=== PATIENT | male | born 1930 | race Caucasian/White ===

== ENCOUNTER 2017-06-02 11:07 | Observation (INO) | payer MEDICARE, BC ==
[2017-06-02] MEDS ORDERED: Pneumococcal Polyvalent-23 Vaccine 0.5 ML SDV IM ONE (11:39)
[2017-06-02] MEDS ORDERED: Sodium Chloride 0.9% 2.5 ML Syringe FLUSH PRN (12:08)
[2017-06-02] MEDS ORDERED: Acetaminophen 325 MG Tab PO PRN ×2 (12:08→13:29)
[2017-06-02] MEDS: Levofloxacin/Dextrose 5%-Water 750 MG in Premix Bag 1 BAG IV SCH (12:12)
--- NOTE | 2017-06-02 12:49 | PCM.HP ---
H&P History of Present Illness - General Date of Service: 06/02/17 Admit Problem/Dx: Admission Diagnosis/Problem Admission Diagnosis/Problem Hypoxia Source of Information: Patient History Limitations: Reports: No Limitations - History of Present Illness Initial Comments - Free Text/Narative: This 87 year old male with pmh of diastolic dysfunction, pulmonary fibrosis, macular degeneration and HTN presented to [place] outpatient clinic at request of [facility] nurses due to hypoxia and SOB with low grade temp this morning. He was seen by Leila Randolph NP, who noted the hypoxia with normal white count. She called for direct admit for suspected pneumonia. He was brought to hospital directly and admited observation for suspected pneumonia. He was placed on 2 L oxygen, with sats mid 90s. He reports feeling general malaise, a productive cough, with yellow to green phlegm. He denies fevers or chills. Eating and drinking ok at [facility]. No troubles with abdominal pain or nausea. No urinary concerns. Patient not the greatest historian when it comes to [facility], obtained for [facility] documents and previous clinic notes from Dr. Lucas. No leukocytosis noted, influenza swab obtained along with CXR. CXR revealed diffuse reticulonodular pattern, greater in lung bases, no dense consolidation, pleural effusion or pneumothorax, mildly prominent upper lobe vascularity. He will remain observation for pneumonia and hypoxia. - Related Data Allergies/Adverse Reactions: Allergies Allergy/AdvReac Type Severity Reaction Status Date / Time No Known Allergies Allergy Verified 06/02/17 11:30 Home Medications: Home Meds Acetaminophen [Tylenol Extra Strength] 1,000 mg PO BEDTIME PRN 06/02/17 [History ] Acetaminophen [Tylenol Extra Strength] 1,000 mg PO TID PRN 06/02/17 [History] Albuterol Sulfate [Proair Respiclick] 2 puff INH Q4H PRN 06/02/17 [History] Atenolol 50 mg PO DAILY 06/02/17 [History] Bisacodyl [Dulcolax] 10 mg RECTAL DAILY PRN 06/02/17 [History] Docusate Sodium [Colace] 100 mg PO BID 06/02/17 [History] Ferrous Sulfate 325 mg PO DAILY 06/02/17 [History] Fluticasone/Salmeterol [Advair 250-50 Diskus] 50 - 500 inh IH BID 06/02/17 [ History] Loperamide [Imodium] 2 mg PO QID PRN 06/02/17 [History] Loperamide [Imodium] 4 mg PO ONETIME PRN 06/02/17 [History] Mag Hydrox/Al Hydrox/Simeth [Maalox Maximum Strength Susp] 30 ml PO QID PRN [History] Magnesium Hydroxide [Milk of Magnesia] 30 ml PO DAILY PRN 06/02/17 [History] Olmesartan/Hydrochlorothiazide [Benicar HCT 20-12.5 MG] 1 tab PO DAILY 06/02/17 [History] Omeprazole Magnesium [Prilosec Otc] 20 mg PO ACBREAKFAST 06/02/17 [History] guaiFENesin [Robitussin] 300 mg PO Q4H PRN 06/02/17 [History] traMADol [Ultram] 50 mg PO Q6H PRN 06/02/17 [History] traZODone 50 mg PO BEDTIME 06/02/17 [History] Past Medical History HEENT History: Reports: Macular Degeneration Cardiovascular History: Reports: CAD, Heart Failure (diastolic dysfunction), Hypertension. Denies: Afib Respiratory History: Reports: Pneumonia, Recurrent, Pulmonary Fibrosis, SOB Gastrointestinal History: Reports: None. Denies: GERD Genitourinary History: Reports: None. Denies: Chronic Renal Insuffiency Musculoskeletal History: Reports: None Neurological History: Reports: None. Denies: CVA, TIA Endocrine/Metabolic History: Denies: Diabetes, Type II, Hypothyroidism Hematologic History: Reports: None Social & Family History - Alcohol Use Alcohol Use History: No H&P Review of Systems - Review of Systems: Review Of Systems: See Below General: Reports: Malaise, Fatigue. Denies: Fever, Chills HEENT: Reports: No Symptoms. Denies: Headaches, Sinus Congestion, Sore Throat Pulmonary: Reports: Shortness of Breath (with ambulation more than anything), Cough, Sputum (yellow to green). Denies: Wheezing, Pleuritic Chest Pain Cardiovascular: Reports: No Symptoms. Denies: Chest Pain, Palpitations, Edema, Lightheadedness, Syncope Gastrointestinal: Reports: No Symptoms. Denies: Abdominal Pain, Black Stool, Bloody Stool, Decreased Appetite, Nausea, Vomiting Genitourinary: Reports: No Symptoms. Denies: Dysuria, Frequency, Burning, Pain Musculoskeletal: Reports: No Symptoms Skin: Reports: No Symptoms Psychiatric: Reports: No Symptoms Neurological: Reports: No Symptoms Hematologic/Lymphatic: Reports: No Symptoms Exam - Exam Exam: See Below - Vital Signs Vital Signs: Last Vital Signs Temp 96.9 F 06/02/17 11:29 Pulse 63 06/02/17 11:29 Resp 16 06/02/17 11:29 BP 130/51 L 06/02/17 11:29 Pulse Ox 98 06/02/17 11:29 Weight: 93.8 kg - Exam Quality Assessment: Supplemental Oxygen General: Alert, Oriented, Cooperative HEENT: Conjunctiva Clear, Pupils Equal Neck: Supple, Full Range of Motion. No: Lymphadenopathy Lungs: Normal Respiratory Effort, Crackles (L base), Other (congested moist cough noted.). No: Wheezing Cardiovascular: Regular Rate, Regular Rhythm, Normal S1, Normal S2 GI/Abdominal Exam: Normal Bowel Sounds, Soft, Non-Tender, No Organomegaly, No Distention, No Abnormal Bruit, No Mass, Pelvis Stable Extremities: Normal Range of Motion, Non-Tender, Pedal Edema (+1 bilateral pedal edema, non pitting.) Neurological: Cranial Nerves Intact Neuro Extensive - Mental Status: Alert, Oriented x3, Normal Mood/Affect Psychiatric: Alert, Normal Affect, Normal Mood - Patient Data Result Diagrams: 06/02/17 12:11 *Q Meaningful Use (ADM) - VTE *Q VTE Criteria *Q: - Stroke *Q Stroke Criteria *Q: - AMI *Q AMI Criteria *Q: - Problem List (1) Pneumonia SNOMED Code(s): 688106414 ICD Code: J18.9 - PNEUMONIA, UNSPECIFIED ORGANISM Status: Acute Current Visit: Yes Qualifiers: Pneumonia type: due to unspecified organism Laterality: left Lung location: lower lobe of lung Qualified Code(s): J18.1 - Lobar pneumonia, unspecified organism (2) HTN (hypertension) SNOMED Code(s): 29050823 ICD Code: I10 - ESSENTIAL (PRIMARY) HYPERTENSION Status: Chronic Current Visit: Yes Qualifiers: Hypertension type: essential hypertension Qualified Code(s): I10 - Essential (primary) hypertension (3) Pulmonary fibrosis SNOMED Code(s): 33711457 ICD Code: J84.10 - PULMONARY FIBROSIS, UNSPECIFIED Status: Chronic Current Visit: Yes (4) Macular degeneration SNOMED Code(s): 314685693 ICD Code: H35.30 - UNSPECIFIED MACULAR DEGENERATION Status: Chronic Current Visit: Yes (5) Diastolic dysfunction SNOMED Code(s): 0380760 ICD Code: I51.9 - HEART DISEASE, UNSPECIFIED Status: Chronic Current Visit: Yes Problem List Initiated/Reviewed/Updated: Yes Orders Last 24hrs: Active Orders 24 hr Category Date Time Status Patient Status [ADT] Routine ADT 06/02/17 12:08 Active Intake and Output [RC] QSHIFT Care 06/02/17 12:09 Active Oxygen Therapy [RC] PRN Care 06/02/17 12:08 Active Up With Assistance [RC] ASDIRECTED Care 06/02/17 12:08 Active VTE/DVT Education [RC] PER UNIT ROUTINE Care 06/02/17 12:08 Active Vital Signs [RC] Q4H Care 06/02/17 12:08 Active 2 Gram Sodium Diet [DIET] Diet 06/02/17 Lunch Active Chest 2V [CR] Routine Exams 06/02/17 11:54 Taken BASIC METABOLIC PANEL,BMP [CHEM] AM Lab 06/03/17 05:11 Ordered CBC WITH AUTO DIFF [HEME] AM Lab 06/03/17 05:11 Ordered CMP [COMPREHENSIVE METABOLIC PN,CMP] [CHEM] Routine Lab 06/02/17 12:11 Received CULTURE SPUTUM + SMEAR [RM] Stat Lab 06/02/17 12:08 Uncollected INFLUENZA A+B AG SCREEN [RM] Urgent Lab 06/02/17 12:07 Uncollected Acetaminophen [Tylenol] Med 06/02/17 12:08 Active 650 mg PO Q4H PRN Levofloxacin/Dextrose 5%-Water [Levaquin in D5W 750 MG/ Med 06/02/17 12:00 Active 150 ML] 750 mg Premix Bag 1 bag IV Q24H Sodium Chloride 0.9% [Saline Flush] Med 06/02/17 12:08 Active 2.5 ml FLUSH ASDIRECTED PRN Saline Lock Insert [OM.PC] Routine Oth 06/02/17 12:08 Ordered Medication Orders Acetaminophen (Tylenol) 650 mg PO Q4H PRN PRN Reason: Pain (mild 1-3) Levofloxacin/Dextrose 750 mg/ (Premix) 150 mls @ 100 mls/hr IV Q24H [facility] Last Admin: 06/02/17 12:12 Dose: 100 mls/hr Sodium Chloride (Saline Flush) 2.5 ml FLUSH ASDIRECTED PRN PRN Reason: Keep Vein Open Assessment/Plan Comment:: This 87 year old male admitted with hypocix and suspected community acquire pneumonia 1. Pneumonia: based on presentation. Has hx of recurrent pneumonia. General malaise with productive cough. Levaquin 750 mg IV daily started today. Duonebs and oxygen therapy. Wean as possible. Sputum culture pending. Influenza swab negative. 2. HTN: Stable. Continue home medications 3. Pulmonary fibrosis: Not oxygen dependent. Oxygen as above and wean as possible. May need to increase Oz during ambulation, but then decrease again when at rest, to keep sats 90%. If little improvement tomorrow consider steroids. 4. Diastolic dysfunction: BNP 352, no baseline, increased pulmonary vascularity noted on CXR. Will monitor fluid status. VTE prophylaxis: Heparin Dispo: 1-2 days pending improvement.
[2017-06-02 12:53] LABS: CHLORIDE,CL 104 mmol/L (98-110); SODIUM,NA 136 mmol/L (136-146)
[2017-06-02] MEDS ORDERED: Bisacodyl 10 MG Supp RECTAL PRN (13:29)
[2017-06-02] MEDS ORDERED: traMADol 50 MG Tab PO PRN (13:29)
[2017-06-02] MEDS: Albuterol/Ipratropium 3.0-0.5 MG/3 ML Neb Soln NEB SCH ×3 (14:27→22:51)
[2017-06-02] MEDS: Docusate Sodium 100 MG Cap PO SCH (21:02)
[2017-06-02] MEDS: Heparin Sodium 5,000 Units/ML Vial SUBCUT SCH (21:02)
[2017-06-03] MEDS: Albuterol/Ipratropium 3.0-0.5 MG/3 ML Neb Soln NEB SCH ×5 (02:24→17:04)
[2017-06-03 05:54] LABS: CHLORIDE,CL 106 mmol/L (98-110); SODIUM,NA 137 mmol/L (136-146)
[2017-06-03] MEDS: Omeprazole 20 MG Cap.CR PO SCH (08:53)
[2017-06-03] MEDS: Docusate Sodium 100 MG Cap PO SCH ×2 (08:53→20:39)
[2017-06-03] MEDS: Atenolol 50 MG Tab PO SCH (08:54)
[2017-06-03] MEDS: Ferrous Sulfate 325 MG Tab PO SCH (08:54)
[2017-06-03] MEDS: Heparin Sodium 5,000 Units/ML Vial SUBCUT SCH ×2 (08:55→20:39)
--- NOTE | 2017-06-03 08:58 | PCM.PN ---
- General Info Date of Service: 06/03/17 Admission Dx/Problem (Free Text): Admission Diagnosis/Problem Admission Diagnosis/Problem Hypoxia Subjective Update: Shortness improved. States that he has a history of recurrent pneumonia. No fevers, nausea, vomiting, or diarrhea. Eating and eliminating without difficulty. No pain. Slept well. Functional Status: Reports: Pain Controlled, Tolerating Diet, Ambulating - Review of Systems General: Reports: Fatigue, Appetite. Denies: Fever, Weakness HEENT: Denies: Headaches, Visual Changes Pulmonary: Reports: Cough, Sputum. Denies: Shortness of Breath, Hemoptysis Cardiovascular: Denies: Chest Pain, Palpitations, Edema Gastrointestinal: Denies: Abdominal Pain, Nausea, Vomiting Genitourinary: Denies: Dysuria Musculoskeletal: Denies: Neck Pain, Leg Pain Skin: Denies: Cyanosis Neurological: Reports: Confusion. Denies: Dizziness, Headache Psychiatric: Reports: Confusion - Patient Data Vitals - Most Recent: Last Vital Signs Temp 97.8 F 06/03/17 07:56 Pulse 81 06/03/17 08:54 Resp 16 06/03/17 07:56 BP 111/57 L 06/03/17 08:54 Pulse Ox 97 06/03/17 08:56 Weight - Most Recent: 93.8 kg I&O - Last 24 Hours: Intake & Output 06/02/17 06/03/17 06/03/17 22:59 06:59 14:59 Intake Total 250 320 Output Total 250 Balance 0 320 Lab Results Last 24 Hours: Laboratory Results - last 24 hr 06/02/17 06/02/17 06/03/17 Range/Units 12:11 12:11 04:43 WBC 6.21 (4.0-11.0) K/uL RBC 3.85 L (4.50-5.90) M/uL Hgb 12.2 L (13.0-17.0) g/dL Hct 36.3 L (38.0-50.0) % MCV 94.3 (80.0-98.0) fL MCH 31.7 (27.0-32.0) pg MCHC 33.6 (31.0-37.0) g/dL RDW Std Deviation 45.5 (28.0-62.0) fl RDW Coeff of Neelima 13 (11.0-15.0) % Plt Count 163 (150-400) K/uL MPV 9.40 (7.40-12.00) fL Neut % (Auto) 68.5 (48.0-80.0) % Lymph % (Auto) 17.9 (16.0-40.0) % [place] % (Auto) 12.6 (0.0-15.0) % Eos % (Auto) 0.8 (0.0-7.0) % Baso % (Auto) 0.2 (0.0-1.5) % Neut # (Auto) 4.3 (1.4-5.7) K/uL Lymph # (Auto) 1.1 (0.6-2.4) K/uL [place] # (Auto) 0.8 (0.0-0.8) K/uL Eos # (Auto) 0.1 (0.0-0.7) K/uL Baso # (Auto) 0.0 (0.0-0.1) K/uL Nucleated RBC % 0.0 /100WBC Nucleated RBCs # 0 K/uL Sodium 136 (136-146) mmol/L Potassium 4.2 (3.5-5.1) mmol/L Chloride 104 (98-110) mmol/L Carbon Dioxide 21 (21-31) mmol/L BUN 26 H (6.0-23.0) mg/dL Creatinine 1.0 (0.6-1.5) mg/dL Est Cr Clr Drug Dosing 54.38 mL/min Estimated GFR (MDRD) > 60.0 ml/min Glucose 117 H (60-110) mg/dL Calcium 8.7 L (8.8-10.8) mg/dL Total Bilirubin 1.3 (0.1-1.5) mg/dL AST 14 (5-40) IU/L ALT 10 (8-54) IU/L Alkaline Phosphatase 64 (40-150) B-Natriuretic Peptide 352 H (<100) PG/ML Total Protein 6.0 (6.0-8.0) g/dL Albumin 3.5 (3.4-4.8) g/dL Globulin 2.5 (2.0-3.5) g/dL Albumin/Globulin Ratio 1.4 (1.3-2.8) 06/03/17 Range/Units 04:43 WBC (4.0-11.0) K/uL RBC (4.50-5.90) M/uL Hgb (13.0-17.0) g/dL Hct (38.0-50.0) % MCV (80.0-98.0) fL MCH (27.0-32.0) pg MCHC (31.0-37.0) g/dL RDW Std Deviation (28.0-62.0) fl RDW Coeff of Neelima (11.0-15.0) % Plt Count (150-400) K/uL MPV (7.40-12.00) fL Neut % (Auto) (48.0-80.0) % Lymph % (Auto) (16.0-40.0) % [place] % (Auto) (0.0-15.0) % Eos % (Auto) (0.0-7.0) % Baso % (Auto) (0.0-1.5) % Neut # (Auto) (1.4-5.7) K/uL Lymph # (Auto) (0.6-2.4) K/uL [place] # (Auto) (0.0-0.8) K/uL Eos # (Auto) (0.0-0.7) K/uL Baso # (Auto) (0.0-0.1) K/uL Nucleated RBC % /100WBC Nucleated RBCs # K/uL Sodium 137 (136-146) mmol/L Potassium 4.0 (3.5-5.1) mmol/L Chloride 106 (98-110) mmol/L Carbon Dioxide 20 L (21-31) mmol/L BUN 26 H (6.0-23.0) mg/dL Creatinine 1.1 (0.6-1.5) mg/dL Est Cr Clr Drug Dosing 49.44 mL/min Estimated GFR (MDRD) > 60.0 ml/min Glucose 125 H (60-110) mg/dL Calcium 8.5 L (8.8-10.8) mg/dL Total Bilirubin (0.1-1.5) mg/dL AST (5-40) IU/L ALT (8-54) IU/L Alkaline Phosphatase (40-150) B-Natriuretic Peptide (<100) PG/ML Total Protein (6.0-8.0) g/dL Albumin (3.4-4.8) g/dL Globulin (2.0-3.5) g/dL Albumin/Globulin Ratio (1.3-2.8) Luke Results Last 24 Hours: Microbiology 06/02/17 12:57 Influenza Type A Antigen Screen - Final Nasopharyngeal Swab - Nare, Right NEGATIVE INFLUENZA A VIRUS AG Influenza Type B Antigen Screen - Final NEGATIVE INFLUENZA B VIRUS AG Med Orders - Current: Current Medications Acetaminophen (Tylenol) 650 mg PO Q4H PRN PRN Reason: Pain (mild 1-3) Last Admin: 06/02/17 19:40 Dose: 650 mg Acetaminophen (Tylenol) 650 mg PO TID PRN PRN Reason: Pain Albuterol/Ipratropium (Duoneb 3.0-0.5 Mg/3 Ml) 3 ml NEB Q4HRRT [facility] Last Admin: 06/03/17 06:37 Dose: 3 ml Atenolol (Tenormin) 50 mg PO DAILY [facility] Last Admin: 06/03/17 08:54 Dose: 50 mg Bisacodyl (Dulcolax) 10 mg RECTAL DAILY PRN PRN Reason: Constipation Docusate Sodium (Colace) 100 mg PO BID [facility] Last Admin: 06/03/17 08:53 Dose: 100 mg Ferrous Sulfate (Ferrous Sulfate) 325 mg PO DAILY [facility] Last Admin: 06/03/17 08:54 Dose: 325 mg Heparin Sodium (Porcine) (Heparin Sodium) 5,000 units SUBCUT Q12HR [facility] Last Admin: 06/03/17 08:55 Dose: 5,000 units Levofloxacin/Dextrose 750 mg/ (Premix) 150 mls @ 100 mls/hr IV Q24H [facility] Last Admin: 06/02/17 12:12 Dose: 100 mls/hr Omeprazole (Omeprazole) 20 mg PO DAILY [facility] Last Admin: 06/03/17 08:53 Dose: 20 mg Benicar Hct 20/12.5 1 each PO DAILY [facility] Sodium Chloride (Saline Flush) 2.5 ml FLUSH ASDIRECTED PRN PRN Reason: Keep Vein Open Tramadol HCl (Ultram) 50 mg PO Q6H PRN PRN Reason: Pain Discontinued Medications Pneumococcal Polyvalent Vaccine (Pneumovax 23) 0.5 ml IM .ONCE ONE Stop: 06/02/17 11:40 Last Admin: 06/02/17 13:52 Dose: Not Given - Exam Quality Assessment: DVT Prophylaxis General: Alert, Cooperative, No Acute Distress HEENT: Pupils Equal, Pupils Reactive, EOMI, Mucous Membr. Moist/[place] Neck: Supple, Trachea Midline Lungs: Normal Respiratory Effort, Crackles, Rales Cardiovascular: Regular Rate, Regular Rhythm GI/Abdominal Exam: Normal Bowel Sounds, Soft, Non-Tender, No Organomegaly, No Distention Back Exam: Normal Inspection, Full Range of Motion Extremities: Normal Inspection, Non-Tender, No Pedal Edema, Normal Capillary Refill Peripheral Pulses: 2+: Radial (L), Radial (R), Posterior Tibial (L), Posterior Tibial (R), Dorsalis Pedis (L), Dorsalis Pedis (R) Skin: Warm, Dry, Intact Neurological: No New Focal Deficit Psy/Mental Status: Alert, Normal Affect, Normal Mood - Problem List & Annotations (1) Pneumonia SNOMED Code(s): 424155212 Code(s): J18.9 - PNEUMONIA, UNSPECIFIED ORGANISM Status: Acute Priority: High Current Visit: Yes Qualifiers: Pneumonia type: due to unspecified organism Laterality: left Lung location: lower lobe of lung Qualified Code(s): J18.1 - Lobar pneumonia, unspecified organism (2) Diastolic dysfunction SNOMED Code(s): 3445472 Code(s): I51.9 - HEART DISEASE, UNSPECIFIED Status: Chronic Priority: Low Current Visit: Yes (3) HTN (hypertension) SNOMED Code(s): 67270349 Code(s): I10 - ESSENTIAL (PRIMARY) HYPERTENSION Status: Chronic Priority : Low Current Visit: Yes Qualifiers: Hypertension type: essential hypertension Qualified Code(s): I10 - Essential (primary) hypertension (4) Pulmonary fibrosis SNOMED Code(s): 86614587 Code(s): J84.10 - PULMONARY FIBROSIS, UNSPECIFIED Status: Chronic Priority: Medium Current Visit: Yes - Problem List Review Problem List Initiated/Reviewed/Updated: Yes - My Orders Last 24 Hours: My Active Orders 06/02/17 11:54 Chest 2V [CR] Routine 06/02/17 12:00 Levofloxacin/Dextrose 5%-Water [Levaquin in D5W 750 MG/150 ML] 750 mg Premix Bag 1 bag IV Q24H - Plan Plan:: This 87 year old male admitted with hypocix and suspected community acquire pneumonia 1. Pneumonia: Hx of recurrent pneumonia. Able to ween to RA early this morning but still having cough and wheezing. Will switch to oral Levaquin 750 mg day 2 abx Cont. Duonebs and oxygen therapy as needed. Sputum culture pending. Influenza swab negative. 2. HTN: Stable. Continue home medications 3. Pulmonary fibrosis: Not oxygen dependent. May need to increase Oz during ambulation, but then decrease again when at rest, to keep sats 90%. Patient has improved and will hold on steroids. 4. Diastolic dysfunction: BNP 352, no baseline, increased pulmonary vascularity noted on CXR. Will monitor fluid status. VTE prophylaxis: Heparin Dispo: Tomorrow pending improvement.
[2017-06-03] MEDS: BENICAR HCT PO SCH (09:08)
--- NOTE | 2017-06-03 09:58 | CR ---
EXAM DATE: 06/02/17 PATIENT'S AGE: 87 Patient: LALA CISNEROS Facility: [place], [place] Site . Site : 1930 Study: XRay Chest [id number]/26/2017 12:49:47 PM Ordering Physician: Aleksander Mcknight Final Report: Indication: Pneumonia. Technique 2 view chest. Comparison: No comparison. Impression: The lungs have a diffuse reticulonodular pattern. This is greater in the lung bases. No dense consolidation. No pleural effusions or pneumothorax. Heart size is normal. Mildly prominent upper lobe pulmonary vascularity. Dictated by Greyson Valero MD @ Jun 02 2017 1:12PM (Electronic Signature) Report Signed by Proxy. [facility] DIVISIONJen
[2017-06-03] MEDS: Levofloxacin/Dextrose 5%-Water 750 MG in Premix Bag 1 BAG IV SCH (11:10)
[2017-06-04] MEDS: Albuterol/Ipratropium 3.0-0.5 MG/3 ML Neb Soln NEB SCH ×3 (00:13→11:13)
[2017-06-04] MEDS: Heparin Sodium 5,000 Units/ML Vial SUBCUT SCH (09:01)
[2017-06-04] MEDS: Docusate Sodium 100 MG Cap PO SCH (09:01)
[2017-06-04] MEDS: Ferrous Sulfate 325 MG Tab PO SCH (09:01)
[2017-06-04] MEDS: Omeprazole 20 MG Cap.CR PO SCH (09:01)
[2017-06-04] MEDS: Atenolol 50 MG Tab PO SCH (09:03)
[2017-06-04] MEDS: BENICAR HCT PO SCH (09:26)
--- NOTE | 2017-06-04 10:47 | PCM.DCSUM1 ---
Discharge Summary - Discharge Data Discharge Date: 06/04/17 Discharge Disposition: Home, Self-Care 01 Condition: Good - Patient Summary/Data Hospital Course: Admission diagnosis Community Acquired pneumonia Hospital Course: This 87 year old male with pmh of diastolic dysfunction, pulmonary fibrosis, macular degeneration and HTN who presented to [place] outpatient clinic at request of [facility] nurses due to hypoxia and SOB with low grade temp. CXR reported diffuse reticulonodular pattern, greater in lung bases, no dense consolidation, pleural effusion or pneumothorax, mildly prominent upper lobe vascularity. He was seen by Leila Randolph, [facility], who noted the hypoxia with normal white count. Direct admission was arranged for treatment of pneumonia. He was placed on 2 L oxygen, with sats mid 90s. He was treated with Levaquin. He did have improvement in his shortness of breath and was weaned off nasal canula oxygen. On third hospital day he is requesting discharge. He was discharged home on levaquin 750mg q48 #3 tablets. He is to follow up with his PCP in [place] [facility]. - Patient Instructions Diet: Regular Diet as Tolerated Activity: As Tolerated Notify Provider of: Fever - Discharge Plan Prescriptions/Med Rec: Levofloxacin [Levaquin] 750 mg PO Q48H #3 tablet Home Medications: Home Meds Acetaminophen [Tylenol Extra Strength] 1,000 mg PO BEDTIME PRN 06/02/17 [History ] Acetaminophen [Tylenol Extra Strength] 1,000 mg PO TID PRN 06/02/17 [History] Albuterol Sulfate [Proair Respiclick] 2 puff INH Q4H PRN 06/02/17 [History] Atenolol 50 mg PO DAILY 06/02/17 [History] Bisacodyl [Dulcolax] 10 mg RECTAL DAILY PRN 06/02/17 [History] Docusate Sodium [Colace] 100 mg PO BID 06/02/17 [History] Ferrous Sulfate 325 mg PO DAILY 06/02/17 [History] Fluticasone/Salmeterol [Advair 250-50 Diskus] 50 - 500 inh IH BID 06/02/17 [ History] Loperamide [Imodium] 2 mg PO QID PRN 06/02/17 [History] Loperamide [Imodium] 4 mg PO ONETIME PRN 06/02/17 [History] Mag Hydrox/Al Hydrox/Simeth [Maalox Maximum Strength Susp] 30 ml PO QID PRN [History] Magnesium Hydroxide [Milk of Magnesia] 30 ml PO DAILY PRN 06/02/17 [History] Olmesartan/Hydrochlorothiazide [Benicar HCT 20-12.5 MG] 1 tab PO DAILY 06/02/17 [History] Omeprazole Magnesium [Prilosec Otc] 20 mg PO ACBREAKFAST 06/02/17 [History] guaiFENesin [Robitussin] 300 mg PO Q4H PRN 06/02/17 [History] traMADol [Ultram] 50 mg PO Q6H PRN 06/02/17 [History] traZODone 50 mg PO BEDTIME 06/02/17 [History] Levofloxacin [Levaquin] 750 mg PO Q48H #3 tablet 06/04/17 [Rx] - Patient Data Vitals - Most Recent: Last Vital Signs Temp 36.4 C 06/04/17 08:00 Pulse 84 06/04/17 09:03 Resp 20 06/04/17 08:00 BP 115/46 L 06/04/17 09:03 Pulse Ox 90 L 06/04/17 08:00 Weight - Most Recent: 93.8 kg I&O - Last 24 hours: Intake & Output 06/03/17 06/04/17 06/04/17 22:59 06:59 14:59 Intake Total 200 140 Output Total 200 Balance 200 -60 Lab Results - Last 24 hrs: Laboratory Results - last 24 hr 06/04/17 06/04/17 Range/Units 05:05 05:05 WBC 7.48 (4.0-11.0) K/uL RBC 3.99 L (4.50-5.90) M/uL Hgb 12.6 L (13.0-17.0) g/dL Hct 36.9 L (38.0-50.0) % MCV 92.5 (80.0-98.0) fL MCH 31.6 (27.0-32.0) pg MCHC 34.1 (31.0-37.0) g/dL RDW Std Deviation 44.3 (28.0-62.0) fl RDW Coeff of Neelima 13 (11.0-15.0) % Plt Count 197 (150-400) K/uL MPV 9.60 (7.40-12.00) fL Neut % (Auto) 68.9 (48.0-80.0) % Lymph % (Auto) 17.5 (16.0-40.0) % [place] % (Auto) 12.2 (0.0-15.0) % Eos % (Auto) 1.1 (0.0-7.0) % Baso % (Auto) 0.3 (0.0-1.5) % Neut # (Auto) 5.2 (1.4-5.7) K/uL Lymph # (Auto) 1.3 (0.6-2.4) K/uL [place] # (Auto) 0.9 H (0.0-0.8) K/uL Eos # (Auto) 0.1 (0.0-0.7) K/uL Baso # (Auto) 0.0 (0.0-0.1) K/uL Nucleated RBC % 0.0 /100WBC Nucleated RBCs # 0 K/uL Sodium 139 (136-146) mmol/L Potassium 4.7 (3.5-5.1) mmol/L Chloride 108 (98-110) mmol/L Carbon Dioxide 20 L (21-31) mmol/L BUN 36 H (6.0-23.0) mg/dL Creatinine 1.3 (0.6-1.5) mg/dL Est Cr Clr Drug Dosing 41.83 mL/min Estimated GFR (MDRD) 52.1 ml/min Glucose 115 H (60-110) mg/dL Calcium 9.2 (8.8-10.8) mg/dL GRACIELA Results - Last 24 hrs: Microbiology 06/03/17 20:45 Gram Stain - Preliminary Sputum - Expectorated Med Orders - Current: Current Medications Acetaminophen (Tylenol) 650 mg PO Q4H PRN PRN Reason: Pain (mild 1-3) Last Admin: 06/02/17 19:40 Dose: 650 mg Albuterol/Ipratropium (Duoneb 3.0-0.5 Mg/3 Ml) 3 ml NEB Q6HRRT [facility] Last Admin: 06/04/17 06:28 Dose: 3 ml Atenolol (Tenormin) 50 mg PO DAILY [facility] Last Admin: 06/04/17 09:03 Dose: 50 mg Bisacodyl (Dulcolax) 10 mg RECTAL DAILY PRN PRN Reason: Constipation Docusate Sodium (Colace) 100 mg PO BID [facility] Last Admin: 06/04/17 09:01 Dose: 100 mg Ferrous Sulfate (Ferrous Sulfate) 325 mg PO DAILY [facility] Last Admin: 06/04/17 09:01 Dose: 325 mg Heparin Sodium (Porcine) (Heparin Sodium) 5,000 units SUBCUT Q12HR [facility] Last Admin: 06/04/17 09:01 Dose: 5,000 units Levofloxacin (Levaquin) 750 mg PO Q48H [facility] Omeprazole (Omeprazole) 20 mg PO DAILY [facility] Last Admin: 06/04/17 09:01 Dose: 20 mg Benicar Hct 20/12.5 1 each PO DAILY [facility] Last Admin: 06/04/17 09:26 Dose: Not Given Sodium Chloride (Saline Flush) 2.5 ml FLUSH ASDIRECTED PRN PRN Reason: Keep Vein Open Tramadol HCl (Ultram) 50 mg PO Q6H PRN PRN Reason: Pain Discontinued Medications Acetaminophen (Tylenol) 650 mg PO TID PRN PRN Reason: Pain Albuterol/Ipratropium (Duoneb 3.0-0.5 Mg/3 Ml) 3 ml NEB Q4HRRT [facility] Last Admin: 06/03/17 14:14 Dose: 3 ml Levofloxacin/Dextrose 750 mg/ (Premix) 150 mls @ 100 mls/hr IV Q24H [facility] Last Admin: 06/03/17 11:10 Dose: 100 mls/hr Pneumococcal Polyvalent Vaccine (Pneumovax 23) 0.5 ml IM .ONCE ONE Stop: 06/02/17 11:40 Last Admin: 06/02/17 13:52 Dose: Not Given *Q Meaningful Use (DIS) - VTE *Q VTE Criteria *Q: - Stroke *Q Stroke Criteria *Q: - AMI *Q AMI Criteria *Q:
[2017-06-05] MEDS ORDERED: Levofloxacin 250 MG Tab PO SCH (09:00)
== END 2017-06-04 12:15 | disposition home or self-care (01) ==
LOC: MW.MS 11:07
PROVIDERS: ADMIT Family Medicine; ATTEND Family Medicine
DX: J18.9 Pneumonia, unspecified organism (principal); J84.10 Pulmonary fibrosis, unspecified; H35.30 Unspecified macular degeneration; I50.9 Heart failure, unspecified; I11.0 Hypertensive heart disease with heart failure; Z79.899 Other long term (current) drug therapy; Z79.51 Long term (current) use of inhaled steroids
CPT/HCPCS: 36415; 71020; 80048; 80053; 83880; 85025; 87070; 87205; 87804; 94640; A9270; J1644; J1956; 96365; 96366; 96372; G0378; G0379